=== PATIENT | male | born 1960 | race African-American/Black ===

== ENCOUNTER 2022-10-22 10:28 | Inpatient (IN) | payer OTHER ==
[2022-10-22 10:51] VITALS: BMI 24.0
[2022-10-22] MEDS ORDERED: METHOCARBAMOL 500 MG TABLET PO PRN (11:29)
[2022-10-22] MEDS ORDERED: ONDANSETRON *ODT* 4 MG TABLET SL PRN (11:29)
[2022-10-22] MEDS ORDERED: ACETAMINOPHEN 325 MG TABLET (FP) PO PRN (11:29)
[2022-10-22] MEDS ORDERED: MAGNESIUM HYDROX 2400MG/30ML ORAL SUSPENSION 30 ML CUP PO PRN (11:29)
[2022-10-22] MEDS ORDERED: DICYCLOMINE HCL 10 MG CAPSULE PO PRN (11:29)
[2022-10-22] MEDS ORDERED: LOPERAMIDE HCL 2 MG CAPSULE PO PRN (11:29)
[2022-10-22] MEDS ORDERED: BENZOCAINE/MENTHOL (CHLORASEPTIC ) LOZENGE MM PRN (11:29)
[2022-10-22] MEDS ORDERED: IBUPROFEN 600 MG TABLET (FP) PO PRN (11:29)
[2022-10-22] MEDS ORDERED: POLYETHYLENE GLYCOL (HEALTHYLAX) 3350 17 GM PACKET PO PRN (11:29)
[2022-10-22] MEDS ORDERED: NALOXONE HCL 0.4 MG/ML VIAL IM PRN (11:29)
[2022-10-22] MEDS ORDERED: BISMUTH SUBSALICYLATE 262 MG/15 ML BTL PO PRN (11:29)
[2022-10-22] MEDS ORDERED: NALOXONE HCL (KLOXXADO) 8 MG SPRAY NS PRN (11:29)
[2022-10-22] MEDS ORDERED: NICOTINE 10 MG CARTRIDGE (INHALER) IH PRN (11:29)
[2022-10-22] MEDS ORDERED: hydrOXYzine PAMOATE 25 MG CAPSULE (FP) PO PRN (11:29)
[2022-10-22] MEDS ORDERED: IBUPROFEN 400 MG TABLET (FP) PO PRN (11:29)
[2022-10-22] MEDS ORDERED: BENZONATATE 200 MG CAPSULE PO PRN (11:29)
[2022-10-22] MEDS ORDERED: MAG HYDROX/AL HYDROX/SIMETH 30 ML UNIT-DOSE CUP PO PRN (11:29)
[2022-10-22] MEDS ORDERED: guaiFENesin 600 MG TABLET.ER (FP) PO PRN (11:29)
[2022-10-22] MEDS ORDERED: NICOTINE 14 MG/24 HOURS TOPICAL PATCH TD ONE (12:05)
[2022-10-22] MEDS ORDERED: PRENATAL VITAMINS W/ FOLIC ACID TABLET (FP) PO ONE (12:06)
[2022-10-22] MEDS: PRENATAL VITAMINS W/ FOLIC ACID TABLET (FP) PO SCH (12:09)
[2022-10-22] MEDS: NICOTINE 14 MG/24 HOURS TOPICAL PATCH TD SCH (12:10)
[2022-10-22] MEDS ORDERED: cloNIDine HCL 0.1 MG TABLET PO PRN (13:14)
[2022-10-22] MEDS ORDERED: methaDONE HCL 10 MG TABLET (FOR DETOX USE ONLY) ONE (13:22)
[2022-10-22] MEDS ORDERED: methaDONE HCL 10 MG TABLET (FOR DETOX USE ONLY) PO ONE (13:45)
[2022-10-22 14:36] LABS: HEMATOCRIT 33.5 % (35.4-49); HEMOGLOBIN 11.2 GM/dL (11.7-16.9); MCH 28.2 pg (25.7-33.7); MCHC 33.6 g/dl (32.0-35.9); MEAN CELL VOLUME 84.1 fl (80-96); MEAN PLT VOLUME 6.8 fl (7.5-11.1); PLATELET COUNT 270 10^3/uL (134-434); RBC 3.98 M/mm3 (4.00-5.60); RDW 14.1 % (11.9-15.9); WHITE BLOOD COUNT 3.2 K/mm3 (4.0-10.0)
[2022-10-22 14:43] LABS: ALBUMIN 3.4 g/dl (3.4-5.0); BLOOD UREA NITROGEN 16.2 mg/dL (7-18)
[2022-10-22 14:46] LABS: CREATININE 1.4 mg/dL (0.55-1.3)
[2022-10-22 14:47] LABS: TOT PROT 7.5 g/dl (6.4-8.2)
[2022-10-22 14:48] LABS: BILIRUBIN,TOTAL 0.2 mg/dL (0.2-1)
[2022-10-22] MEDS: MELATONIN 5 MG TABLETS PO SCH (22:40)
[2022-10-22] MEDS: THIAMINE HCL 100 MG TABLET (FP) PO SCH (22:40)
[2022-10-23] MEDS: NICOTINE 14 MG/24 HOURS TOPICAL PATCH TD SCH (10:12)
[2022-10-23] MEDS: PRENATAL VITAMINS W/ FOLIC ACID TABLET (FP) PO SCH (10:13)
[2022-10-23] MEDS: THIAMINE HCL 100 MG TABLET (FP) PO SCH (22:49)
[2022-10-23] MEDS: MELATONIN 5 MG TABLETS PO SCH (22:49)
[2022-10-24] MEDS ORDERED: methaDONE HCL 10 MG TABLET (FOR DETOX USE ONLY) PO ONE (10:00)
[2022-10-24] MEDS: NICOTINE 14 MG/24 HOURS TOPICAL PATCH TD SCH (10:06)
[2022-10-24] MEDS: PRENATAL VITAMINS W/ FOLIC ACID TABLET (FP) PO SCH (10:07)
[2022-10-24] MEDS: THIAMINE HCL 100 MG TABLET (FP) PO SCH (21:06)
[2022-10-24] MEDS: MELATONIN 5 MG TABLETS PO SCH (21:06)
[2022-10-25] MEDS ORDERED: cloNIDine HCL 0.1 MG TABLET PO ONE (07:58)
[2022-10-25] MEDS: NICOTINE 14 MG/24 HOURS TOPICAL PATCH TD SCH (10:06)
[2022-10-25] MEDS: PRENATAL VITAMINS W/ FOLIC ACID TABLET (FP) PO SCH (10:06)
[2022-10-25 11:43] LABS: CALCIUM 8.9 mg/dL (8.5-10.1)
[2022-10-25 11:44] LABS: BLOOD UREA NITROGEN 17.8 mg/dL (7-18)
[2022-10-25 11:46] LABS: ALBUMIN 3.1 g/dl (3.4-5.0)
[2022-10-25 11:47] LABS: CREATININE 1.3 mg/dL (0.55-1.3)
[2022-10-25 11:48] LABS: BILIRUBIN,TOTAL 0.2 mg/dL (0.2-1)
[2022-10-25] MEDS: MELATONIN 5 MG TABLETS PO SCH (22:28)
[2022-10-25] MEDS: THIAMINE HCL 100 MG TABLET (FP) PO SCH (22:28)
[2022-10-26] MEDS ORDERED: cloNIDine HCL 0.1 MG TABLET PO ONE (07:37)
[2022-10-26] MEDS ORDERED: methaDONE HCL 10 MG TABLET (FOR DETOX USE ONLY) PO ONE (10:00)
[2022-10-26] MEDS: amLODIPine BESYLATE 5 MG TABLET (FP) PO SCH (10:20)
[2022-10-26] MEDS: PRENATAL VITAMINS W/ FOLIC ACID TABLET (FP) PO SCH (10:20)
[2022-10-26] MEDS: NICOTINE 14 MG/24 HOURS TOPICAL PATCH TD SCH (10:22)
[2022-10-26] MEDS: THIAMINE HCL 100 MG TABLET (FP) PO SCH (22:29)
[2022-10-26] MEDS: MELATONIN 5 MG TABLETS PO SCH (22:29)
[2022-10-27 10:07] VITALS: BP 162/95; PULSE 79; RESP 17; TEMP 97.7
[2022-10-27] MEDS: PRENATAL VITAMINS W/ FOLIC ACID TABLET (FP) PO SCH (10:19)
[2022-10-27] MEDS: amLODIPine BESYLATE 5 MG TABLET (FP) PO SCH (10:19)
[2022-10-27] MEDS: NICOTINE 14 MG/24 HOURS TOPICAL PATCH TD SCH (10:20)
== END 2022-10-27 12:41 | disposition home or self-care (01) | DRG 773 ==
LOC: YASAS 10:28 → Y3N 13:09
PROVIDERS: ADMIT Allergy & Immunology; ATTEND Surgery
PROC: HZ2ZZZZ Detoxification Services for Substance Abuse Treatment (ICD-10-PCS; principal; 2022-10-22)
DX: F11.23 Opioid dependence with withdrawal (principal); F17.210 Nicotine dependence, cigarettes, uncomplicated; D64.9 Anemia, unspecified; E87.1 Hypo-osmolality and hyponatremia; I10 Essential (primary) hypertension; N17.9 Acute kidney failure, unspecified; R74.01 Elevation of levels of liver transaminase levels; Z28.310 Unvaccinated for COVID-19; Z28.9 Immunization not carried out for unspecified reason
CPT/HCPCS: 36415; 80053; 84450; 85027; 86780; 93005; 93010; C9803-CS; U0003; U0005

== ENCOUNTER 2022-11-09 12:37 | Inpatient (IN) | payer OTHER ==
[2022-11-09 13:11] VITALS: BMI 23.7
[2022-11-09] MEDS ORDERED: NICOTINE POLACRILEX 2 MG GUM BUC PRN (13:38)
[2022-11-09] MEDS ORDERED: POLYETHYLENE GLYCOL (HEALTHYLAX) 3350 17 GM PACKET PO PRN (13:38)
[2022-11-09] MEDS ORDERED: MAGNESIUM HYDROX 2400MG/30ML ORAL SUSPENSION 30 ML CUP PO PRN (13:38)
[2022-11-09] MEDS ORDERED: IBUPROFEN 400 MG TABLET (FP) PO PRN (13:38)
[2022-11-09] MEDS ORDERED: LOPERAMIDE HCL 2 MG CAPSULE PO PRN (13:38)
[2022-11-09] MEDS ORDERED: BENZOCAINE/MENTHOL (CHLORASEPTIC ) LOZENGE MM PRN (13:38)
[2022-11-09] MEDS ORDERED: ONDANSETRON *ODT* 4 MG TABLET SL PRN (13:38)
[2022-11-09] MEDS ORDERED: ACETAMINOPHEN 325 MG TABLET (FP) PO PRN (13:38)
[2022-11-09] MEDS ORDERED: NALOXONE HCL (KLOXXADO) 8 MG SPRAY NS PRN (13:38)
[2022-11-09] MEDS ORDERED: guaiFENesin 600 MG TABLET.ER (FP) PO PRN (13:38)
[2022-11-09] MEDS ORDERED: IBUPROFEN 600 MG TABLET (FP) PO PRN (13:38)
[2022-11-09] MEDS ORDERED: NICOTINE 14 MG/24 HOURS TOPICAL PATCH TD PRN (13:38)
[2022-11-09] MEDS ORDERED: BISMUTH SUBSALICYLATE 262 MG/15 ML BTL PO PRN (13:38)
[2022-11-09] MEDS ORDERED: MAG HYDROX/AL HYDROX/SIMETH 30 ML UNIT-DOSE CUP PO PRN (13:38)
[2022-11-09] MEDS ORDERED: NICOTINE 10 MG CARTRIDGE (INHALER) IH PRN (13:38)
[2022-11-09] MEDS ORDERED: hydrOXYzine PAMOATE 25 MG CAPSULE (FP) PO PRN (13:38)
[2022-11-09] MEDS ORDERED: BENZONATATE 200 MG CAPSULE PO PRN (13:38)
[2022-11-09] MEDS ORDERED: NALOXONE HCL 0.4 MG/ML VIAL IM PRN (13:38)
[2022-11-09] MEDS: THIAMINE HCL 100 MG TABLET (FP) PO SCH (22:17)
[2022-11-09] MEDS: MELATONIN 5 MG TABLETS PO SCH (22:17)
[2022-11-10] MEDS ORDERED: cloNIDine HCL 0.1 MG TABLET PO PRN (09:29)
[2022-11-10] MEDS ORDERED: methaDONE HCL 10 MG TABLET (FOR DETOX USE ONLY) PO ONE (09:29)
[2022-11-10] MEDS: PRENATAL VITAMINS W/ FOLIC ACID TABLET (FP) PO SCH (10:18)
[2022-11-10] MEDS: MELATONIN 5 MG TABLETS PO SCH (22:40)
[2022-11-10] MEDS: THIAMINE HCL 100 MG TABLET (FP) PO SCH (22:40)
[2022-11-11] MEDS: PRENATAL VITAMINS W/ FOLIC ACID TABLET (FP) PO SCH (10:42)
[2022-11-11] MEDS: MELATONIN 5 MG TABLETS PO SCH (21:51)
[2022-11-11] MEDS: THIAMINE HCL 100 MG TABLET (FP) PO SCH (21:51)
[2022-11-12] MEDS ORDERED: methaDONE HCL 10 MG TABLET (FOR DETOX USE ONLY) PO ONE (10:00)
[2022-11-12] MEDS: PRENATAL VITAMINS W/ FOLIC ACID TABLET (FP) PO SCH (10:10)
[2022-11-12] MEDS: METHOCARBAMOL 500 MG TABLET PO PRN (10:12)
[2022-11-12] MEDS: MELATONIN 5 MG TABLETS PO SCH (21:43)
[2022-11-12] MEDS: THIAMINE HCL 100 MG TABLET (FP) PO SCH (21:43)
[2022-11-13] MEDS: PRENATAL VITAMINS W/ FOLIC ACID TABLET (FP) PO SCH (10:13)
[2022-11-13] MEDS: METHOCARBAMOL 500 MG TABLET PO PRN ×2 (10:13→22:19)
[2022-11-13] MEDS: MELATONIN 5 MG TABLETS PO SCH (22:18)
[2022-11-13] MEDS: THIAMINE HCL 100 MG TABLET (FP) PO SCH (22:18)
[2022-11-14] MEDS: METHOCARBAMOL 500 MG TABLET PO PRN ×2 (07:53→22:24)
[2022-11-14] MEDS ORDERED: methaDONE HCL 10 MG TABLET (FOR DETOX USE ONLY) PO ONE (10:00)
[2022-11-14] MEDS: PRENATAL VITAMINS W/ FOLIC ACID TABLET (FP) PO SCH (10:07)
[2022-11-14] MEDS: THIAMINE HCL 100 MG TABLET (FP) PO SCH (22:24)
[2022-11-14] MEDS: MELATONIN 5 MG TABLETS PO SCH (22:24)
[2022-11-15 06:23] VITALS: BP 154/79; PULSE 61; RESP 17; TEMP 97.8
== END 2022-11-15 08:45 | disposition home or self-care (01) | DRG 773 ==
LOC: YASAS 12:37 → Y3N 14:44
PROVIDERS: ADMIT Allergy & Immunology; ATTEND Surgery
PROC: HZ2ZZZZ Detoxification Services for Substance Abuse Treatment (ICD-10-PCS; principal; 2022-11-08)
DX: F11.23 Opioid dependence with withdrawal (principal); F17.210 Nicotine dependence, cigarettes, uncomplicated; Z28.310 Unvaccinated for COVID-19; Z28.9 Immunization not carried out for unspecified reason; Z59.01 Sheltered homelessness
CPT/HCPCS: C9803-CS; U0003; U0005